=== PATIENT | female | born 1955 | race Caucasian/White ===

== ENCOUNTER 2018-06-29 08:18 | Emergency (ER) | payer BC ==
[2018-06-29] MEDS ORDERED: Famotidine IV* 10 MG/ML 2 ML (20 mg) IV SLOW PU ONE (09:08)
[2018-06-29] MEDS ORDERED: Dexamethasone IV* 4 MG/ML 1 ML (4 MG) IV SLOW PU ONE (09:08)
[2018-06-29] MEDS ORDERED: diPHENhydraMINE PO* 50 MG PO ONE (09:08)
[2018-06-29] MEDS ORDERED: NS 0.9% 1000 ML*IV.FLUID IV ONE (09:15)
[2018-06-29 10:19] VITALS: BP 139/82
--- NOTE | 2018-06-29 10:25 | ED ---
Allergic Reaction/Systemic - HPI Summary HPI Summary: Patient is a 63-year-old female presenting to the ED with a possible allergic reaction. She states she noticed some itching to the inner left thigh last evening, but did not notice any insect bite. She states proximal me 3:00 this morning she noticed her body with began to swell which extended into the bilateral cheeks and finally the upper lip. She denies airway compromise. She denies any SOB, difficulty swallowing or pain. She states the lips feel "tight. " She takes metoprolol and Lexapro daily. She does not take an BERNARD inhibitor. She has never had this reaction to the face in the past, however endorses significant amount of swelling to the left hand several months ago which was an unknown reaction and treated well with Benadryl. - History of Current Complaint Chief Complaint: EDAllergicReaction Time Seen by Provider: 06/29/18 08:44 Hx Obtained From: Patient Onset/Duration: Sudden Onset Timing: Constant Severity Initially: Mild Severity Currently: Mild Pain Intensity: 0 Pain Scale Used: 0-10 Numeric Location: Discrete @ - lower lip and bilateral cheeks Character: Swelling Associated Signs And Symptoms: Positive: Negative - Related Hx Possible Reaction To: Insect - Allergies/Home Medications Allergies/Adverse Reactions: Allergies Allergy/AdvReac Type Severity Reaction Status Date / Time No Known Allergies Allergy Verified 06/29/18 08:36 Home Medications: Home Medications Atorvastatin* [Lipitor*] 20 mg PO DAILY 06/29/18 [History Confirmed 06/29/18] Metoprolol Tartrate TAB* [Lopressor TAB*] 12.5 mg PO DAILY 06/29/18 [History Confirmed 06/29/18] PMH/Surg Hx/FS Hx/Imm Hx Previously Healthy: Yes Endocrine/Hematology History: Reports: Hx Thyroid Disease - Hypothyroid Denies: Hx Diabetes Cardiovascular History: Denies: Hx Hypertension Respiratory History: Denies: Hx Asthma, Hx Chronic Obstructive Pulmonary Disease (COPD) GI History: Denies: Hx Ulcer - Cancer History Hx Chemotherapy: No Hx Radiation Therapy: No - Surgical History Surgery Procedure, Year, and Place: Gallbladder removed - Immunization History Hx Pertussis Vaccination: No Immunizations Up to Date: Yes Infectious Disease History: No Infectious Disease History: Denies: Hx Hepatitis, Hx Human Immunodeficiency Virus (HIV), Traveled Outside the [place] in Last 30 Days - Family History Known Family History: Positive: None - Social History Occupation: Employed Full-time Lives: With Family Alcohol Use: Weekly Hx Substance Use: No Substance Use Type: Reports: None Hx Tobacco Use: No Smoking Status (MU): Never Smoked Tobacco Review of Systems Negative: Fever, Chills, Fatigue Negative: Photophobia, Blurred Vision Negative: Dental Pain, Sore Throat, Ear Ache, Nasal Discharge Negative: Palpitations, Chest Pain Negative: Shortness Of Breath, Cough Genitourinary: Negative Positive: no symptoms reported, see HPI Negative: Myalgia Positive: Other - swelling to the lower lip and bilateral cheeks Neurological: Negative All Other Systems Reviewed And Are Negative: Yes Physical Exam Triage Information Reviewed: Yes Vital Signs On Initial Exam: Initial Vitals Temp Pulse Resp BP Pulse Ox 98.1 F 67 20 136/92 98 06/29/18 08:34 06/29/18 08:34 06/29/18 08:34 06/29/18 08:34 06/29/18 08:34 Vital Signs Reviewed: Yes Appearance: Positive: Well-Appearing, Well-Nourished Skin: Positive: Warm, Skin Color Reflects Adequate Perfusion, Other - Lower lip swelling and swelling to the bilateral cheeks Head/Face: Positive: Normal Head/Face Inspection Eyes: Positive: EOMI, ADAN, Conjunctiva Clear Neck: Positive: Supple, No Lymphadenopathy Respiratory/Lung Sounds: Positive: Clear to Auscultation, Breath Sounds Present Cardiovascular: Positive: RRR, Pulses are Symmetrical in both Upper and Lower Extremities Musculoskeletal: Positive: Normal, Strength/ROM Intact Neurological: Positive: Sensory/Motor Intact, Alert, Oriented to Person Place, Time Psychiatric: Positive: Normal AVPU Assessment: Alert Diagnostics - Vital Signs Vital Signs Temp Pulse Resp BP Pulse Ox 06/29/18 10:15 62 139/82 100 06/29/18 10:00 62 99 06/29/18 09:00 66 96 06/29/18 08:58 65 98 06/29/18 08:56 75 147/84 98 06/29/18 08:34 98.1 F 67 20 136/92 98 - Laboratory Lab Statement: Any lab studies that have been ordered have been reviewed, and results considered in the medical decision making process. Allergic Reaction Course/Dx - Course Course Of Treatment: During the course treatment the patient is evaluated for a possible allergic reaction. On physical examination, there is swelling to the bottom lip in the bilateral cheeks without extending into the neck. Patient states she feels improved since upon wakening this morning, despite not taking any medications. She is given Benadryl, famotidine and Decadron as well as normal saline in the ED. She continues to feel improved. No airway compromise is identified, no drooling, no dysphagia or odynophagia. Lungs CTA, RRR. Patient is given prescriptions. Discussed with patient at length return precautions and she understands these. Mallampati score 1. Denies fevers, sweats, chills or any other sxs at this time. - Diagnoses Differential Diagnosis/HQI/PQRI: Positive: Anaphylaxis, Angioedema, Local Allergic Reaction Provider Diagnoses: Allergic reaction Discharge - Sign-Out/Discharge Documenting (check all that apply): Patient Departure - Discharge Plan Condition: Stable Disposition: HOME Prescriptions: Famotidine TAB* [Pepcid 20 MG TAB*] 40 mg PO DAILY #5 tab predniSONE TAB* [Deltasone TAB*] 50 mg PO DAILY #5 tab MDD 1 Referrals: Kyung Enamorado MD [Primary Care Provider] - Additional Instructions: Take benadryl 50mg up to three times daily if symptoms persist Famotidine once daily x 5 days Prednisone once daily in the morning x 5 days - Billing Disposition and Condition Condition: STABLE Disposition: Home
== END 2018-06-29 10:31 | disposition home or self-care (01) ==
LOC: ED 08:18
DX: T78.40XA Allergy, unspecified, initial encounter (principal); X58.XXXA Exposure to other specified factors, initial encounter; Z90.49 Acquired absence of other specified parts of digestive tract
CPT/HCPCS: 96374; 96375; 99283; A9270-GY; J1100